=== PATIENT | female | born 1965 | race Caucasian/White ===

== ENCOUNTER 2018-08-24 11:46 | Outpatient (CLI) | payer OTHER | END 2018-08-24 11:47 | disposition home or self-care (01) | LOC: BICMAMMO 11:46 | PROVIDERS: ATTEND Family Medicine | DX: Z12.31 Encounter for screening mammogram for malignant neoplasm of breast (principal); Z80.3 Family history of malignant neoplasm of breast | CPT/HCPCS: 77063; 77067 ==

== ENCOUNTER 2018-11-15 05:13 | Observation (INO) | payer OTHER ==
[2018-11-15 06:29] LABS: #Basophils 0.1 thou/uL (0.0-0.2); #Eosinphils 0.3 thou/uL (0.0-0.7); #Lymphocytes 2.1 thou/uL (1.20-3.40); #Monocytes 0.5 thou/uL (0.11-0.59); #Neutrophils 3.8 thou/uL (1.40-6.50); %Basophils 0.8 % (0.0-1.0); %Eosinophils 4.4 % (0.0-10.0); %Lymphocytes 31.4 % (21.0-51.0); %Monocytes 7.4 % (0.0-10.0); Hemoglobin 13.3 g/dL (12.0-16.0); Mean Corpuscular HGB CONC 33.3 g/dL (32.0-36.0); Mean Corpuscular Hemoglobin 28.1 pg (27.0-31.0); Mean Corpuscular Volume 84.5 fL (78.0-98.0); Mean Platelet Volume 7.9 fL (7.4-10.4); Platelet Count 231 thou/uL (130-400); RBC Distribution Width 12.9 % (11.5-14.5); Red Blood Cell (RBC) Count 4.72 mill/uL (4.20-5.40); White Blood Cell (WBC) Count 6.7 thou/uL (4.8-10.8)
--- NOTE | 2018-11-15 06:30 | CT ---
CT Brain WO Con HISTORY: Left-sided numbness that began yesterday COMPARISON: None. FINDINGS: The ventricular and cisternal system is within normal limits. There are no signs of intrace rebral hemorrhage or extra-axial fluid collections. The mastoid air cells and visualized sinuses are clear. IMPRESSION: No acute intracranial abnormalities.
[2018-11-15] MEDS ORDERED: Aspirin 81 mg Enteric Coated Tablet ONE (06:37)
[2018-11-15 06:46] LABS: ALT (SGPT) 27 U/L (8-55); AST (SGOT) 19 U/L (5-34); Albumin 4.3 g/dL (3.5-5.0); Alkaline Phosphatase 77 U/L (40-150); Anion Gap 15 mmol/L (10-20); BUN (Urea Nitrogen) 13 mg/dL (9.8-20.1); Bilirubin, Total 0.4 mg/dL (0.2-1.2); CK (CPK) 173 U/L (29-168); Calc. Creatinine Clearance 0 mL/min (70-130); Calcium 9.3 mg/dL (7.8-10.44); Carbon Dioxide 19 mmol/L (22-29); Chloride 107 mmol/L (98-107); Estimated GFR-MDRD 68; Globulin 3.1 g/dL (2.4-3.5); Glucose 116 mg/dL (70-105); Potassium 3.9 mmol/L (3.5-5.1); Protein, Total 7.4 g/dL (6.0-8.3); Sodium 137 mmol/L (136-145)
--- NOTE | 2018-11-15 06:50 | RAD ---
XR Chest 1 View Portable HISTORY: Hypertension left-sided paresthesias. COMPARISON: None. FINDINGS: Heart size and mediastinum are within normal limits. The lungs are clear of infiltrates. No significant bony findings. IMPRESSION: No active intrathoracic disease.
[2018-11-15] MEDS ORDERED: Acetaminophen 325 MG TAB PO PRN (08:21)
[2018-11-15 09:20] VITALS: BMI 41.4
--- NOTE | 2018-11-15 09:59 | MRI ---
Exam: Brain MRI without contrast HISTORY: Transient ischemic attack COMPARISON: None FINDINGS: Calvarial marrow signal intensity: Appropriate T1 signal Gradient echo sequence: No hemorrhage Brain parenchyma: No mass, mass effect or midline shift. Brain volume, age-appropriate. Hyperintensit ies, nonspecific. Cortical marie-white matter differentiation: Preserved Restricted diffusion: Central arterial flow voids are maintained. Absent restricted diffusion White matter signal intensities:Scattered T2 and FLAIR white matter hyperintensities due to chronic s mall vessel ischemic changes Sinuses: Mild mucosal disease of the right sphenoid sinus. IMPRESSION: 1. Absent restricted diffusion. No acute infarct 2. Scattered nonspecific T2 and FLAIR Y matter hyperintensities.
--- NOTE | 2018-11-15 10:21 | ULT ---
US Carotid Doppler STANDARD HISTORY: TIA COMPARISON: None. FINDINGS: Real-time color Doppler evaluation of right and left carotid systems was performed. On the right side peak systolic velocities the common carotid were 87 cm/s. Internal carotid velocity 69 cm/s external carotid velocity is 133 cm/s. On the left side peak systolic velocities of the common carotid were 102 cm/s. Internal carotid veloc ities of 77 cm/s external carotid velocities of 59 cm/s. Vertebral flow is antegrade bilaterally. IMPRESSION: No evidence of hemodynamically significant stenosis of either internal carotid artery by NASCET criteria
--- NOTE | 2018-11-15 11:52 | HP ---
CHIEF COMPLAINT: Left-sided paresthesia. 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 The patient reported yesterday while making rounds at the hospital regarding an IT project, she felt that she had some very mild numbness in the left perioral area. She felt like she had been to the dentist and her anesthetic was wearing off. She had very minimal slight drooling at the corner of her mouth. She did not make too much of that and ultimately resolved. She went to bed last night, woke up around 4:00 to 4:30 this morning and those sensations were back encompassing more of the left side of her face, although very and very mild. At that time, she also noted something similar involving her left upper and lower extremities that persistent and now she reports that she has very, very minimal lightheadedness when she tries to get up and around. The patient reports that throughout the day yesterday, she was doing frequent self neuro checks and everything appeared to stay normal. She also reports that she has a glucometer and periodically monitors her blood sugar and it has been within the normal range. REVIEW OF SYSTEMS: The patient denies any headaches like migraines. She does occasionally have some posterior headaches, which she believes are related to stress. She denies any rash, but reports slight burning sensation in the left upper abdomen a couple of times in the past week. She also reports recently having reflux type symptoms and also reports that she does snore significantly. She admits to having some mild lower extremity edema intermittently. She denies any fevers or chills. All other systems reviewed and all pertinent positives and negatives noted in the history of present illness. PAST MEDICAL HISTORY: Notable for hypertension, which the patient reports has only been since she has moved to this area and is of recent onset. She is not on any medications. She states that she went back to [place] for about a week and while there, her blood pressure was better, so she is concerned it may be something environmental that is affecting her blood pressure. She also has a history of hyperlipidemia and knows that she should be on a statin, but not. She has a history of very mild asthma, very mild anxiety and rarely takes medicines for that. She does have history of colon polyps. Some mild allergic rhinitis. Also of note, some years ago the patient had a health fair screening, which included an ultrasound of her carotids. At that time, she was told that she had the carotid arteries of a person in their 70s, but she has never pursued that. PAST SURGICAL HISTORY: Septal deviation repair, L4-L5 disk surgery, polypectomy, and wisdom tooth extraction. FAMILY HISTORY: Father had TIAs in his 50s. She reports he had AFib, but that resolved after receiving chelation therapy while he was in [place]. Her mother is alive and physically healthy in her 90s. She does have significant panic attacks. SOCIAL HISTORY: The patient is a nonsmoker, nondrinker, and nondrug user. She has been for about 2 years and she is full code. Her is her surrogate decision maker. ALLERGIES: NONE. CURRENT MEDICATIONS: P.r.n. clonazepam 0.5 mg. PHYSICAL EXAMINATION: VITAL SIGNS: Blood pressure 153/87, pulse 87, respirations 18, temperature 98.2, and O2 saturations 99% on room air. GENERAL APPEARANCE: Age-appropriate female. She is in no distress. She has normal affect. Normal behavior. Awake, alert, pleasant, and cooperative. HEENT: PERRL. No OP lesions. NECK: Supple and symmetric. HEART: Regular rate and rhythm without murmurs. LUNGS: Clear bilaterally. ABDOMEN: Soft, nontender, and nondistended. No masses. No organomegaly. EXTREMITIES: No cyanosis, clubbing, or edema. SKIN: Warm and dry. NEUROLOGICAL: Cranial nerves appear to be fully intact, although she does have some subjective decreased sensation on the left side of the face in all 3 branches of the trigeminal. She has normal strength and sensation, otherwise throughout with no other focal deficits. LABORATORY DATA: White count 6.7, hemoglobin 13.3, and platelets 231. Chemistries normal with the exception of CO2 of 19, glucose 116. CK 173. IAMGING DATA: Chest x-ray is negative. CT brain negative. EKG shows normal sinus rhythm. IMPRESSION AND PLAN: 1. Left-sided paresthesia concerning for the possibility of transient ischemic attack. Risk factors include hyperlipidemia, hypertension, and possible history of carotid atherosclerosis. The patient will be kept in observation on telemetry. We will obtain an MRI of the brain to rule out the potential for mass or lesions not detected on CT. We will obtain echocardiogram and carotid Dopplers and check a fasting lipid panel in the morning. We will continue the patient on aspirin. She has received a 325 aspirin in the emergency department. 2. History of hyperlipidemia. Recheck fasting lipid panel in the morning. I discussed with the patient she may need to be on a statin. 3. Elevated blood pressure. It is not clear that she actually has an established diagnosis of hypertension. We will continue to monitor that while she is here and treat as needed. Job ID: [id number]
[2018-11-15 15:56] VITALS: BP 132/72; TEMP 98.7
[2018-11-16] MEDS ORDERED: Aspirin 81 mg Enteric Coated Tablet PO SCH (09:00)
--- NOTE | 2018-11-16 11:23 | DIS ---
DATE OF ADMISSION: 11/15/2018 DATE OF DISCHARGE: 11/15/2018 DISCHARGE DIAGNOSES: 1. Left paresthesias including face and extremities. 2. Hyperlipidemia. 3. Moderate small-vessel ischemic disease of the brain on MRI. 4. Elevated blood pressure without diagnosis of hypertension. 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 She presented to the emergency department, where a CT of the head was unremarkable with some concern about the possibility of TIA as her symptoms were improving. Therefore, she was placed in the hospital on observation. She reported a history of hyperlipidemia, although she had not been on statins in the past. She reports that she had some elevated blood pressure since moving to this area, but had previously not had elevated blood pressure. When she left the area, it was better as well. She was concerned for some sort of environmental factor. The patient underwent workup including an MRI of the brain, which did reveal some small-vessel ischemic changes. Carotid Doppler which was negative and an echocardiogram, which was negative as well. With her symptoms adequately resolved and her appearing to be in stable condition, she was felt to be appropriate for discharge. PHYSICAL EXAMINATION: VITAL SIGNS: On the day of discharge, temperature was 98.7, pulse 85, respirations 18, O2 saturation 98% on room air, and BP 132/72. GENERAL APPEARANCE: Age-appropriate female, in no distress. Awake, alert, oriented, pleasant, cooperative. HEART: Regular rate and rhythm without murmurs, gallops, or rubs. LUNGS: Clear to auscultation bilaterally with good chest wall expansion and air exchange. ABDOMEN: Soft, nontender, and nondistended. Positive bowel sounds. No masses. No organomegaly. EXTREMITIES: No cyanosis, clubbing, or edema. NEURO: Nonfocal with 5/5 strength throughout. No significant hypoesthesias. DISPOSITION: The patient is discharged in stable condition to home. ACTIVITY: As tolerated. DIET: She has no dietary restrictions, although she is encouraged to go on a weight loss diet and increase her physical activity. DISCHARGE MEDICATIONS: She will be on aspirin 81 mg daily and she is amenable to starting statins. We will prescribe atorvastatin 20 mg p.o. daily. She will continue with her usual home vitamin regimen. FOLLOWUP: She is encouraged to follow up with the PCP in the next 14 days. She can return to the hospital should she have any problems prior to that time. Job ID: [id number]
== END 2018-11-15 18:45 | disposition home or self-care (01) ==
LOC: ERS 05:13 → 2SE 09:18
PROVIDERS: ADMIT Hospitalist; ATTEND Hospitalist
DX: R20.2 Paresthesia of skin (principal); E78.5 Hyperlipidemia, unspecified; J45.909 Unspecified asthma, uncomplicated; F41.9 Anxiety disorder, unspecified; R03.0 Elevated blood-pressure reading, without diagnosis of hypertension; Z79.899 Other long term (current) drug therapy
CPT/HCPCS: 70450; 70551; 71045; 80053; 82550; 84484; 85025; 90471; 90732; 93005; 93306; 93880; 94760; 96360; G0009; G0378

== ENCOUNTER 2019-09-18 09:56 | Emergency (ER) | payer OTHER ==
[2019-09-18 10:46] LABS: #Eosinphils 0.3 thou/uL (0.0-0.7); #Lymphocytes 1.9 thou/uL (1.20-3.40); #Monocytes 0.5 thou/uL (0.11-0.59); #Neutrophils 4.2 thou/uL (1.40-6.50); %Basophils 0.4 % (0.0-1.0); %Eosinophils 4.1 % (0.0-10.0); %Lymphocytes 27.8 % (21.0-51.0); %Neutrophils 60.7 % (42.0-75.0); Hemoglobin 13.1 g/dL (12.0-16.0); Mean Corpuscular HGB CONC 33.1 g/dL (32.0-36.0); Mean Corpuscular Hemoglobin 27.8 pg (27.0-31.0); Mean Platelet Volume 7.8 fL (7.4-10.4); Platelet Count 263 thou/uL (130-400); RBC Distribution Width 13.1 % (11.5-14.5); Red Blood Cell (RBC) Count 4.69 mill/uL (4.20-5.40)
[2019-09-18 10:59] LABS: BHCG - Serum Negative (NEGATIVE); Pregs Control Background? CLEAR/WHITE (CLR/WHITE); Pregs Control Bar Appear? YES (CONTROL BAR)
--- NOTE | 2019-09-18 12:28 | ULT ---
Pelvic sonogram transabdominal and transvaginal imaging with duplex evaluation HISTORY: Vaginal bleeding. Pain. FINDINGS: Urinary bladder is incompletely distended. Uterus has a heterogeneous echotexture and measu res up to 10.0 cm length. Endometrium is 1.2 cm. Nabothian cysts associated with the cervix. No free fluid within the pelvis. Cyst arising from the right ovary measures up to 5.1 cm greatest diameter. Dominant follicle of the l eft ovary is 1.9 cm. Good color and spectral Doppler flow within each ovary. IMPRESSION: Large right ovarian cyst. 5.1 cm Thickened endometrium.
[2019-09-18 13:12] LABS: Bacteria/HPF None Seen HPF (None Seen); Bilirubin Negative (Negative); Blood, Urine 1+ (Negative); Clarity Clear (Clear); Glucose, Urine (Dipstick) Normal (Negative); Leukocyte Negative Leu/uL (Negative); Nitrite Negative (Negative); Protein, Urine (Dipstick) 30 mg/dL (Neg-Trace); RBC/HPF 0-3 HPF (0-3); Squamous Epithelial None Seen HPF (0-3); Urobilinogen Normal mg/dL (Less than 2); WBC/HPF 0-3 HPF (0-3)
== END 2019-09-18 13:23 | disposition home or self-care (01) ==
LOC: ERS 09:56
DX: N93.9 Abnormal uterine and vaginal bleeding, unspecified (principal); E78.5 Hyperlipidemia, unspecified; I10 Essential (primary) hypertension; J45.909 Unspecified asthma, uncomplicated; F41.9 Anxiety disorder, unspecified; Z79.51 Long term (current) use of inhaled steroids; Z79.899 Other long term (current) drug therapy
CPT/HCPCS: 36415; 76856; 81003; 81015; 84703; 85025; 86850; 86900; 86901

== ENCOUNTER 2019-10-23 17:51 | Emergency (ER) | payer OTHER ==
[2019-10-23 18:58] LABS: #Eosinphils 0.2 thou/uL (0.0-0.7); #Lymphocytes 2.3 thou/uL (1.20-3.40); #Monocytes 0.7 thou/uL (0.11-0.59); #Neutrophils 7.5 thou/uL (1.40-6.50); %Basophils 0.3 % (0.0-1.0); %Eosinophils 1.9 % (0.0-10.0); %Lymphocytes 21.5 % (21.0-51.0); %Monocytes 6.3 % (0.0-10.0); Hemoglobin 12.6 g/dL (12.0-16.0); Mean Corpuscular HGB CONC 33.6 g/dL (32.0-36.0); Mean Corpuscular Hemoglobin 28.5 pg (27.0-31.0); Mean Corpuscular Volume 84.9 fL (78.0-98.0); Mean Platelet Volume 7.7 fL (7.4-10.4); Platelet Count 276 thou/uL (130-400); Red Blood Cell (RBC) Count 4.43 mill/uL (4.20-5.40); White Blood Cell (WBC) Count 10.7 thou/uL (4.8-10.8)
[2019-10-23 20:10] LABS: INR-International Normal Ratio 0.9; PTT 31.3 SEC (22.9-36.1); Prothrombin Time 11.9 SEC (12.0-14.7)
[2019-10-23 20:24] LABS: BHCG - Serum Negative (NEGATIVE); Pregs Control Background? CLEAR/WHITE (CLR/WHITE); Pregs Control Bar Appear? YES (CONTROL BAR)
== END 2019-10-23 20:53 | disposition home or self-care (01) ==
LOC: ERS 17:51
DX: N93.8 Other specified abnormal uterine and vaginal bleeding (principal); E78.5 Hyperlipidemia, unspecified; J45.909 Unspecified asthma, uncomplicated; F41.9 Anxiety disorder, unspecified; F32.9 Major depressive disorder, single episode, unspecified; F42.9 Obsessive-compulsive disorder, unspecified
CPT/HCPCS: 36415; 84703; 85025; 85610; 85730; 86850; 86900; 86901; 99284

== ENCOUNTER 2019-10-26 06:48 | Emergency (ER) | payer OTHER ==
[2019-10-26 07:44] LABS: #Eosinphils 0.1 thou/uL (0.0-0.7); #Lymphocytes 1.1 thou/uL (1.20-3.40); #Monocytes 0.5 thou/uL (0.11-0.59); #Neutrophils 4.9 thou/uL (1.40-6.50); %Basophils 0.5 % (0.0-1.0); %Eosinophils 1.4 % (0.0-10.0); %Lymphocytes 16.2 % (21.0-51.0); %Monocytes 7.4 % (0.0-10.0); %Neutrophils 74.4 % (42.0-75.0); Hemoglobin 10.8 g/dL (12.0-16.0); Mean Corpuscular HGB CONC 34.1 g/dL (32.0-36.0); Mean Corpuscular Hemoglobin 28.4 pg (27.0-31.0); Mean Corpuscular Volume 83.2 fL (78.0-98.0); Mean Platelet Volume 7.2 fL (7.4-10.4); Platelet Count 237 thou/uL (130-400); RBC Distribution Width 12.9 % (11.5-14.5); Red Blood Cell (RBC) Count 3.81 mill/uL (4.20-5.40); White Blood Cell (WBC) Count 6.6 thou/uL (4.8-10.8)
--- NOTE | 2019-10-26 07:56 | RAD ---
RADIOGRAPH CHEST 1 VIEW: DATE: 10/26/2019. TIME: 7:28 AM. HISTORY: A 54-year-old female with fever. FINDINGS: The visualized lung willams are clear. The cardiomediastinal silhouette and hilar shadows are normal. The lateral costophrenic angles are sharp. The osseous structures appear normal. There is no pneu mothorax. IMPRESSION: Negative. james [] POS: JIN
[2019-10-26 08:10] LABS: ALT (SGPT) 19 U/L (8-55); AST (SGOT) 17 U/L (5-34); Albumin 4.3 g/dL (3.5-5.0); Alkaline Phosphatase 68 U/L (40-110); Anion Gap 13 mmol/L (10-20); BUN (Urea Nitrogen) 14 mg/dL (9.8-20.1); Bilirubin, Total 0.3 mg/dL (0.2-1.2); Calc. Creatinine Clearance 0 mL/min (70-130); Calcium 9.2 mg/dL (7.8-10.44); Carbon Dioxide 22 mmol/L (22-29); Chloride 107 mmol/L (98-107); Estimated GFR-MDRD 73; Globulin 2.9 g/dL (2.4-3.5); Glucose 114 mg/dL (70-105); Potassium 3.8 mmol/L (3.5-5.1); Protein, Total 7.2 g/dL (6.0-8.3); Sodium 138 mmol/L (136-145)
[2019-10-26 08:13] LABS: Bacteria/HPF None Seen HPF (None Seen); Bilirubin Negative (Negative); Blood, Urine Negative (Negative); Clarity Clear (Clear); Glucose, Urine (Dipstick) Normal (Negative); Leukocyte Negative Leu/uL (Negative); Nitrite Negative (Negative); Protein, Urine (Dipstick) 30 mg/dL (Neg-Trace); RBC/HPF None Seen HPF (0-3); Squamous Epithelial 0-3 HPF (0-3); Urobilinogen Normal mg/dL (Less than 2); WBC/HPF None Seen HPF (0-3)
[2019-10-26 08:29] LABS: Calcium Oxalate Crystals Rare HPF (None Seen)
== END 2019-10-26 09:06 | disposition home or self-care (01) ==
LOC: ERS 06:48
DX: N93.8 Other specified abnormal uterine and vaginal bleeding (principal); R50.9 Fever, unspecified; F32.9 Major depressive disorder, single episode, unspecified; F42.9 Obsessive-compulsive disorder, unspecified; J45.909 Unspecified asthma, uncomplicated; E78.5 Hyperlipidemia, unspecified; F41.9 Anxiety disorder, unspecified; Z79.899 Other long term (current) drug therapy
CPT/HCPCS: 51701; 71045; 80053; 81003; 81015; 83605; 84443; 85025; 87804; 96360; A4353

== ENCOUNTER 2019-10-29 11:11 | Day surgery (SDC) | payer OTHER ==
[~2019-10-29 11:11] MED LIST: Dexamethasone 20 MG/5 ML VIAL ONE; Ondansetron PF 4 MG/2 ML Vial ONE
[2019-10-29 11:58] LABS: Hemoglobin 11.3 g/dL (12.0-16.0); Mean Corpuscular HGB CONC 33.1 g/dL (32.0-36.0); Mean Corpuscular Hemoglobin 27.9 pg (27.0-31.0); Mean Corpuscular Volume 84.2 fL (78.0-98.0); Mean Platelet Volume 7.3 fL (7.4-10.4); Platelet Count 278 thou/uL (130-400); RBC Distribution Width 13.4 % (11.5-14.5); Red Blood Cell (RBC) Count 4.04 mill/uL (4.20-5.40); White Blood Cell (WBC) Count 6.3 thou/uL (4.8-10.8)
[2019-10-29] MEDS ORDERED: Doxycycline Hyclate 200 MG in Sodium Chloride 0.9% 250 ML 250 ML IVPB SCH (12:15)
[2019-10-29] MEDS ORDERED: Ondansetron PF 4 MG/2 ML Vial ONE (13:21)
[2019-10-29] MEDS ORDERED: Midazolam HCl 2 mg/2 ml Vial ONE (13:21)
[2019-10-29] MEDS ORDERED: Famotidine/PF 20 mg/2ml Vial ONE (13:21)
[2019-10-29] MEDS ORDERED: Dexamethasone 4 mg/ml Vial ONE (13:21)
[2019-10-29] MEDS ORDERED: Tranexamic Acid 1,000 MG/10 ML VIAL ONE (14:19)
--- NOTE | 2019-10-31 10:45 | OP ---
DATE OF PROCEDURE: 10/29/2019 PREOPERATIVE DIAGNOSIS: Abnormal uterine bleeding. POSTOPERATIVE DIAGNOSIS: Abnormal uterine bleeding. PROCEDURES PERFORMED: Hysteroscopy, dilation and curettage, and TruClear biopsy. ANESTHESIA: General LMA. HAIR SPECIALIST SURGEON: None. ESTIMATED BLOOD LOSS: 20 mL. COMPLICATIONS: None. DRAINS: None. PATHOLOGY: 1. Posterior uterine biopsy. 2. Endometrial curettings. FINDINGS: Normal-sized 8 cm uterus. Normal appearing cervix. No masses. On hysteroscopy, endocervical canal was within normal limits. There were normal uterine contours; however, the endometrium was very thickened. Tubal ostia were visualized bilaterally. Upon entry into the uterine cavity, the endometrium was again thickened, however, also appeared highly vascular with multiple bleeding areas just constantly oozing despite the pressure from the saline inside the uterus. There was a large clot filling the uterine cavity, that made visualization difficult initially. There was a posterior bulge in the endometrium near the fundus, that was biopsied with TruClear. This appeared to be a soft mass. This was not a dense tissue. Overall curettage was performed to the entire endometrium and sent for final pathology. Following all over curetting, the endometrium appeared less oozy and vascular and more of a frayed, shaggy appearance, and there was no active bleeding. This ooziness had subsided. The fluid deficit for the case was 50 mL. DESCRIPTION OF PROCEDURE: The patient was taken to the operating room, where general anesthesia was obtained without difficulty. The patient was prepped and draped in a sterile fashion in the dorsal lithotomy position. A speculum was placed in the vagina. The anterior lip of the cervix was grasped with a single-tooth tenaculum. The cervix was then progressively dilated with David dilators, and the uterus was then sounded to 8 cm. The TruClear 5 mm hysteroscope was assembled and primed. Normal saline was used as distention media. The hysteroscope was inserted into the uterus, and the above findings were noted. The clot was then broken up with the hysteroscope as well as fluid pressure in order to better visualize the cavity. Once the posterior bulge in the endometrium was noted, the small incisor was used to shave biopsy in that specific area and sent for final pathology. The hysteroscope was removed, and sharp curetting was performed to all uterine polanco with a large amount of tissue returning. This was sent for final pathology. The hysteroscope was then reinserted into the uterus, and there was no further active ooziness or vascularity appearance to the endometrium, and there were no further masses that appeared following the curetting. The Hysteroscope was then removed. The tenaculum was removed off the cervix. Hemostasis was noted. All instruments were removed out of the vagina. The patient tolerated the procedure well. Sponge and needle counts correct x2. The patient was taken to recovery room in stable condition. The patient received doxycycline 200 mg IV prior to the procedure. Job ID: [id number]
== END 2019-10-29 18:00 | disposition home or self-care (01) ==
LOC: SDC 11:11
PROVIDERS: ATTEND Student in an Organized Health Care Education/Training Program
PROC: 0UJD8ZZ Inspection of Uterus and Cervix, Via Natural or Artificial Opening Endoscopic (ICD-10-PCS; principal; 2019-10-29)
PROC: 0UDB8ZX Extraction of Endometrium, Via Natural or Artificial Opening Endoscopic, Diagnostic (ICD-10-PCS; principal; 2019-10-29)
PROC: 0UDB7ZX Extraction of Endometrium, Via Natural or Artificial Opening, Diagnostic (ICD-10-PCS; principal; 2019-10-29)
DX: N92.1 Excessive and frequent menstruation with irregular cycle (principal); F90.9 Attention-deficit hyperactivity disorder, unspecified type; E55.9 Vitamin D deficiency, unspecified; F32.9 Major depressive disorder, single episode, unspecified; F41.9 Anxiety disorder, unspecified; I10 Essential (primary) hypertension; E78.5 Hyperlipidemia, unspecified; J45.909 Unspecified asthma, uncomplicated; Z79.899 Other long term (current) drug therapy
CPT/HCPCS: 36415; 85027; 86850; 86900; 86901; 88305; J1100; J2250; J2405; J7050; S0028

== ENCOUNTER 2019-11-30 09:49 | Outpatient (CLI) | payer OTHER ==
--- NOTE | 2019-11-30 10:32 | MMO ---
Bilateral MAMMO Bilat Diag DDI+VAL. CLINICAL HISTORY: Patient is 54 years old and is seen for diagnostic exam. The patient has the following family history of breast cancer: paternal grandmother, at age 60. The patient has no personal history of cancer. VIEWS: The views performed were: bilateral craniocaudal with tomosynthesis; bilateral mediolateral oblique with tomosynthesis; and bilateral mediolateral with tomosynthesis. FILMS COMPARED: The present examination has been compared to prior imaging studies performed at [facility] on 08/24/2018 and 11/30/2019. This study has been interpreted with the assistance of computer-aided detection. MAMMOGRAM FINDINGS: The breasts are heterogeneously dense, which could obscure a lesion on mammography. Finding 1: There are stable benign appearing calcifications seen in the right breast. Finding 2: There are no mammographic abnormalities to explain the patient's right breast pain. The patient is referred back to her clinician. Negative imaging findings should not preclude biopsy if clinical findings are suspicious. Finding 3: There are no mammographic or sonographic abnormalities in the area of palpable concern. The patient is referred back to her clinician. Negative imaging findings should not preclude biopsy if clinical findings are suspicious. There are no suspicious masses, suspicious calcifications, or new areas of architectural distortion. IMPRESSION: FINDING 2: THERE ARE NO MAMMOGRAPHIC ABNORMALITIES TO EXPLAIN THE PATIENT'S RIGHT BREAST PAIN. THE PATIENT IS REFERRED BACK TO HER CLINICIAN. NEGATIVE IMAGING FINDINGS SHOULD NOT PRECLUDE BIOPSY IF CLINICAL FINDINGS ARE SUSPICIOUS. FINDING 3: THERE ARE NO MAMMOGRAPHIC ABNORMALITIES IN THE AREA OF PALPABLE CONCERN. THE PATIENT IS REFERRED BACK TO HER CLINICIAN. NEGATIVE IMAGING FINDINGS SHOULD NOT PRECLUDE BIOPSY IF CLINICAL FINDINGS ARE SUSPICIOUS. THE RESULTS OF THIS EXAM WERE SENT TO THE PATIENT. ACR BI-RADS Category 2 - Benign finding MAMMOGRAPHY NOTE: 1. A negative mammogram report should not delay a biopsy if a dominant of clinically suspicious mass is present. 2. Approximately 10% to 15% of breast cancers are not detected by mammography. 3. Adenosis and dense breasts may obscure an underlying neoplasm. Reported by: TRU TRAORE MD Electonically Signed: [id number]
--- NOTE | 2019-11-30 10:32 | MMO ---
Left US Breast Limited Lt. CLINICAL HISTORY: Patient is 54 years old and is seen for . VIEWS: The views performed were: . FILMS COMPARED: The present examination has been compared to prior imaging studies performed at [facility] on 08/24/2018 and 11/30/2019. This study has been interpreted with the assistance of computer-aided detection. LEFT BREAST ULTRASOUND FINDINGS: There are no mammographic or sonographic abnormalities in the area of palpable concern. The patient is referred back to her clinician. Negative imaging findings should not preclude biopsy if clinical findings are suspicious. On ultrasound, no suspicious findings are identified. IMPRESSION: THERE ARE NO SONOGRAPHIC ABNORMALITIES IN THE AREA OF PALPABLE CONCERN. THE PATIENT IS REFERRED BACK TO HER CLINICIAN. NEGATIVE IMAGING FINDINGS SHOULD NOT PRECLUDE BIOPSY IF CLINICAL FINDINGS ARE SUSPICIOUS. THE RESULTS OF THIS EXAM WERE SENT TO THE PATIENT. ACR BI-RADS Category 2 - Benign finding MAMMOGRAPHY NOTE: 1. A negative mammogram report should not delay a biopsy if a dominant of clinically suspicious mass is present. 2. Approximately 10% to 15% of breast cancers are not detected by mammography. 3. Adenosis and dense breasts may obscure an underlying neoplasm. Reported by: TRU TRAORE MD Electonically Signed: [id number]
== END 2019-11-30 09:50 | disposition home or self-care (01) ==
LOC: BICMAMMO 09:49
PROVIDERS: ATTEND Student in an Organized Health Care Education/Training Program
DX: N63.22 Unspecified lump in the left breast, upper inner quadrant (principal)
CPT/HCPCS: 77066; G0279

== ENCOUNTER 2020-12-24 17:30 | Outpatient (CLI) | payer OTHER | END 2020-12-24 17:31 | disposition home or self-care (01) | LOC: SLEEPLAB 17:30 | PROVIDERS: ATTEND Family Medicine | DX: G47.33 Obstructive sleep apnea (adult) (pediatric) (principal); R53.83 Other fatigue; G31.84 Mild cognitive impairment of uncertain or unknown etiology; R06.83 Snoring; J45.909 Unspecified asthma, uncomplicated; F32.9 Major depressive disorder, single episode, unspecified; G47.00 Insomnia, unspecified; E66.9 Obesity, unspecified; Z68.41 Body mass index [BMI] 40.0-44.9, adult | CPT/HCPCS: 95806 ==

== ENCOUNTER 2022-11-12 16:08 | Outpatient (CLI) | payer BC | END 2022-11-12 16:09 | disposition home or self-care (01) | LOC: BICRAD 16:08 | PROVIDERS: ATTEND Family Medicine | DX: R06.09 Other forms of dyspnea (principal) | CPT/HCPCS: 71046 ==

== ENCOUNTER 2024-02-01 13:46 | Outpatient (CLI) | payer BC | END 2024-02-01 13:47 | disposition home or self-care (01) | LOC: BICMRI 13:46 | PROVIDERS: ATTEND Nurse Practitioner Family | DX: R20.2 Paresthesia of skin (principal); M54.6 Pain in thoracic spine; M54.2 Cervicalgia; M54.50 Low back pain, unspecified; M47.816 Spondylosis without myelopathy or radiculopathy, lumbar region; M47.814 Spondylosis without myelopathy or radiculopathy, thoracic region; M47.817 Spondylosis without myelopathy or radiculopathy, lumbosacral region; M51.34 Other intervertebral disc degeneration, thoracic region; M48.04 Spinal stenosis, thoracic region; M47.812 Spondylosis without myelopathy or radiculopathy, cervical region; M50.31 Other cervical disc degeneration, high cervical region; M50.322 Other cervical disc degeneration at C5-C6 level; M50.33 Other cervical disc degeneration, cervicothoracic region; M50.321 Other cervical disc degeneration at C4-C5 level; M50.323 Other cervical disc degeneration at C6-C7 level; M50.222 Other cervical disc displacement at C5-C6 level; M47.813 Spondylosis without myelopathy or radiculopathy, cervicothoracic region; M48.03 Spinal stenosis, cervicothoracic region; M48.02 Spinal stenosis, cervical region; M25.78 Osteophyte, vertebrae | CPT/HCPCS: 72141; 72146; 72148 ==

== ENCOUNTER 2024-05-17 09:53 | Day surgery (SDC) | payer BC ==
[2024-05-16 13:53] VITALS: BMI 45.4
[2024-05-17] MEDS ORDERED: PROPOFOL 0 ML ONE (10:26)
[2024-05-17] MEDS ORDERED: Diazepam 10 MG/2 ML SYRINGE IVP SCH (11:30)
[2024-05-17] MEDS ORDERED: fentaNYL PF 100 MCG/2 ML SYRINGE ONE ×2 (11:33→11:57)
[2024-05-17] MEDS ORDERED: Sodium Chloride 0.9% 500 ML IVPB SCH (11:45)
== END 2024-05-17 13:40 | disposition home or self-care (01) ==
LOC: SDC 09:53
PROVIDERS: ATTEND Internal Medicine Gastroenterology
PROC: 0DJD8ZZ Inspection of Lower Intestinal Tract, Via Natural or Artificial Opening Endoscopic (ICD-10-PCS; principal; 2024-05-17)
DX: K57.30 Diverticulosis of large intestine without perforation or abscess without bleeding (principal); K64.8 Other hemorrhoids; K62.89 Other specified diseases of anus and rectum; K58.9 Irritable bowel syndrome, unspecified; E78.00 Pure hypercholesterolemia, unspecified; E66.9 Obesity, unspecified; F41.9 Anxiety disorder, unspecified; F32.A Depression, unspecified; F42.9 Obsessive-compulsive disorder, unspecified; J45.909 Unspecified asthma, uncomplicated; G47.30 Sleep apnea, unspecified; Z90.710 Acquired absence of both cervix and uterus; Z90.89 Acquired absence of other organs; Z86.73 Personal history of transient ischemic attack (TIA), and cerebral infarction without residual deficits; Z86.0100 Personal history of colon polyps, unspecified; Z68.42 Body mass index [BMI] 45.0-49.9, adult; Z98.890 Other specified postprocedural states; Z91.048 Other nonmedicinal substance allergy status; Z88.8 Allergy status to other drugs, medicaments and biological substances; Z79.51 Long term (current) use of inhaled steroids; Z79.82 Long term (current) use of aspirin; Z79.899 Other long term (current) drug therapy
CPT/HCPCS: J2704; J3360